=== PATIENT | female | born 1945 | race Caucasian/White ===

== ENCOUNTER → 2017-08-13 15:26 | Outpatient (CLI) | payer MEDICARE | END | disposition home or self-care (01) | LOC: D.MAMMO 07-14 11:30 | DX: Z12.31 Encounter for screening mammogram for malignant neoplasm of breast (principal) ==

== ENCOUNTER → 2017-10-29 09:00 | Outpatient (CLI) | payer MEDICARE ==
[2017-10-29 10:13] LABS: APTT 25.5 SECONDS (22.8-39.4); INR 0.94 (0.85-1.17); PROTIME 12.2 SECONDS (11.6-15.0)
[2017-10-29 10:23] LABS: % SATURATION 31 % (15-55); IRON 103 ug/dl (35-150); TOTAL IRON BIND CAPACITY 327 ug/dl (260-445); UNSAT IRON BIND CAPACITY 224 ug/dl (150-375)
[2017-10-29 10:40] LABS: ALBUMIN 3.9 g/dL (3.4-5.0); BILIRUBIN - DIRECT 0.31 mg/dL (0.00-0.30); BILIRUBIN - INDIRECT 1.49 mg/dL (0.00-1.00); BILIRUBIN - TOTAL 1.8 mg/dL (0.2-1.3); PROTEIN - SERUM 6.7 g/dL (6.4-8.2)
[2017-10-30 08:23] LABS: HAPTOGLOBIN 96 mg/dL (34-200)
[2017-10-30 10:22] LABS: HEPATITIS C ANTIBODY <0.1 (0.0-0.9)
[2017-10-30 12:55] LABS: ANA REFLEX - DIRECT Negative (Negative)
[2017-10-31 13:18] LABS: MITOCHONDRIAL ANTIBODY 5.6 Units (0.0-20.0); SMOOTH MUSCLE ABS (ACTIN) 7 Units (0-19)
== END | disposition home or self-care (01) ==
LOC: D.US 09:00
PROVIDERS: Internal Medicine Gastroenterology
DX: E80.6 Other disorders of bilirubin metabolism (principal); K71.6 Toxic liver disease with hepatitis, not elsewhere classified; Z86.010 Personal history of colon polyps

== ENCOUNTER → 2018-08-14 17:09 | Outpatient (CLI) | payer MEDICARE | END | disposition home or self-care (01) | LOC: D.MAMMO 14:30 | DX: Z12.31 Encounter for screening mammogram for malignant neoplasm of breast (principal) ==

== ENCOUNTER 2019-09-08 09:00 | Outpatient (CLI) | payer MEDICARE | END 2019-09-08 10:00 | disposition home or self-care (01) | LOC: D.MAMMO 09:00 | PROVIDERS: ATTEND Emergency Medicine | DX: Z12.31 Encounter for screening mammogram for malignant neoplasm of breast (principal) ==

== ENCOUNTER 2020-09-11 13:00 | Outpatient (CLI) | payer MEDICARE | END 2020-09-11 23:59 | disposition home or self-care (01) | LOC: D.MAMMO 13:00 | PROVIDERS: ATTEND Emergency Medicine | DX: Z12.31 Encounter for screening mammogram for malignant neoplasm of breast (principal) ==